=== PATIENT | female | born 1950 | race Caucasian/White ===

== ENCOUNTER → 2023-12-29 06:44 | Outpatient (REF) | payer MEDICARE, OTHER, SELFPAY | LOC: MRI 06:44 | PROVIDERS: ATTENDING PHYSICIAN Pain Medicine Interventional Pain Medicine; FAMILY PHYSICIAN Family Medicine | DX: M54.16 Radiculopathy, lumbar region (principal) | CPT/HCPCS: 72148 ==

== ENCOUNTER → 2024-04-24 11:19 | Outpatient (REF) | payer MEDICARE, OTHER, SELFPAY | LOC: WDC 11:19 | PROVIDERS: ATTENDING PHYSICIAN Family Medicine | DX: Z12.31 Encounter for screening mammogram for malignant neoplasm of breast (principal) | CPT/HCPCS: 77063; 77067 ==

== ENCOUNTER → 2024-05-30 09:33 | Outpatient (REF) | payer MEDICARE, OTHER, SELFPAY | LOC: RAD 09:33 | PROVIDERS: ATTENDING PHYSICIAN Family Medicine | DX: R10.9 Unspecified abdominal pain (principal) | CPT/HCPCS: 72110; 74018 ==

== ENCOUNTER → 2024-06-17 08:41 | Outpatient (REF) | payer MEDICARE, OTHER, SELFPAY ==
[2024-06-17 10:33] LABS: Hematocrit 32.5 % (37.0-47.0); Hemoglobin 10.5 g/dL (12.0-16.0); Mean Corp Hgb Conc. 32.3 g/dL (33.0-37.0); Mean Corpuscular Hgb 32.6 pg (27.0-31.0); Mean Corpuscular Volume 100.9 fL (81.0-99.0); Mean Platelet Volume 11.2 fL (7.4-10.4); Platelet Count 138 10^3/uL (130-400); Red Blood Cell Count 3.22 10^6/uL (4.20-5.40); Red Cell Dist. Width 13.2 % (11.5-14.5); White Blood Cell Count 3.5 10^3/uL (4.8-10.8)
[2024-06-17 12:17] LABS: Blood Urea Nitrogen 25 mg/dl (7-17); Carbon Dioxide 29 mmol/L (22-30); Chloride 108 mmol/L (98-107); Glucose 95 mg/dl (70-99); Potassium 4.1 mmol/L (3.5-5.1); Sodium 141 mmol/L (135-145); eGFR > 60.00
== END ==
LOC: SDSPAT 08:41
PROVIDERS: ATTENDING PHYSICIAN Surgery; FAMILY PHYSICIAN Family Medicine
DX: Z01.818 Encounter for other preprocedural examination (principal)
CPT/HCPCS: 36415; 80048; 85027

== ENCOUNTER 2024-06-25 06:25 | Day surgery (SDC) | payer MEDICARE, OTHER, SELFPAY ==
[2024-06-17 14:01] VITALS: BMI 20.8
[2024-06-25] VITALS (10 sets, daily range): BP systolic 106–122; BP diastolic 52–66; BMI 20.8
[2024-06-25] MEDS: NORMOSOL-R/PLASMALYTE-A 1000 IV (09:40)
[2024-06-25] MEDS: TYLENOL 1000 MG PO (09:40)
== END 2024-06-25 13:25 | disposition home or self-care (01) ==
LOC: SDS 06:25
PROVIDERS: ATTENDING PHYSICIAN Surgery; FAMILY PHYSICIAN Family Medicine
DX: K40.90 Unilateral inguinal hernia, without obstruction or gangrene, not specified as recurrent (principal); K41.90 Unilateral femoral hernia, without obstruction or gangrene, not specified as recurrent
CPT/HCPCS: 49650; 49550; C1781

== ENCOUNTER → 2025-01-20 12:39 | Outpatient (REF) | payer MEDICARE, OTHER, SELFPAY | LOC: RAD 12:39 | PROVIDERS: ATTENDING PHYSICIAN Family Medicine | DX: M81.0 Age-related osteoporosis without current pathological fracture (principal); Z78.0 Asymptomatic menopausal state | CPT/HCPCS: 77080 ==